=== PATIENT | male | born 1995 | race Hispanic/Latino ===

== ENCOUNTER 2019-02-24 08:09 | Emergency (ER) | payer SELFPAY ==
--- NOTE | 2019-02-24 09:02 | ER ---
Nurse's Notes [facility] Name: Colin Zaman Age: 24 yrs Sex: Male : 1995 Arrival Date: 02/24/2019 Time: 08:15 Bed 17 Private MD: Diagnosis: Influenza due to other identified influenza virus-B Presentation: 02/24 08:23 Presenting complaint: Patient states: feeling bad, headache, vomiting, feels hot X 2 iw days, +cough/congestion. Transition of care: patient was not received from another setting of care. Onset of symptoms was February 21, 2019. Risk Assessment: Do you want to hurt yourself or someone else? Patient reports no desire to harm self or others. Initial Sepsis Screen: Does the patient meet any 2 criteria? No. Patient's initial sepsis screen is negative. Does the patient have a suspected source of infection? No. Patient's initial sepsis screen is negative. Care prior to arrival: None. 08:23 Method Of Arrival: Ambulatory iw 08:23 Acuity: ALICIA 4 iw Triage Assessment: 08:28 General: Appears in no apparent distress. comfortable, Behavior is cooperative, bp appropriate for age, anxious. Pain: Complains of pain in head. EENT: No deficits noted. Neuro: No deficits noted. Cardiovascular: No deficits noted. Respiratory: No deficits noted. GI: Reports vomiting. : No signs and/or symptoms were reported regarding the genitourinary system. Derm: No deficits noted. Musculoskeletal: No deficits noted. Historical: - Allergies: 08:24 No Known Allergies; iw - Home Meds: 08:24 None [Active]; iw - PMHx: 08:24 None; iw - PSHx: 08:24 None; iw - Immunization history:: Adult Immunizations not up to date. - Social history:: Smoking status: Patient uses tobacco products, denies chronic smoking, but will smoke occasionally. - Ebola Screening: : Patient negative for fever greater than or equal to 101.5 degrees Fahrenheit, and additional compatible Ebola Virus Disease symptoms Patient denies exposure to infectious person Patient denies travel to an Ebola-affected area in the 21 days before illness onset No symptoms or risks identified at this time. Screenin:29 Abuse screen: Denies threats or abuse. Denies injuries from another. Nutritional bp screening: No deficits noted. Tuberculosis screening: No symptoms or risk factors identified. Fall Risk None identified. Assessment: 08:29 General: SEE TRIAGE NOTE. bp 09:38 Reassessment: PT D/C HOME AMBULATORY WITH FAMILY, DX WITH INFLUENZA B. iw Vital Signs: 08:24 BP 139 / 86; Pulse 96; Resp 16; Temp 98.4; Pulse Ox 99% on R/A; Weight 90.72 kg; Height iw 5 ft. 8 in. (172.72 cm); 09:39 BP 127 / 83; Pulse 87; Resp 16; Temp 98.5; Pulse Ox 99% ; iw 08:24 Body Mass Index 30.41 (90.72 kg, 172.72 cm) iw ED Course: 08:15 Patient arrived in ED. mr 08:24 Triage completed. iw 08:25 Arm band placed on. iw 08:27 Sourav Mandel, RN is Primary Nurse. bp 08:29 Ivelisse Pablo FNP-C is PHCP. snw 08:29 Wihco Sandoval MD is Attending Physician. snw 08:29 Patient has correct armband on for positive identification. Bed in low position. Call bp light in reach. Side rails up X2. 09:38 No provider procedures requiring assistance completed. Patient did not have IV access iw during this emergency room visit. Administered Medications: 09:10 Drug: Tamiflu 75 mg Route: PO; bp 09:40 Follow up: Response: No adverse reaction iw 09:10 Drug: Phenergan 25 mg Route: PO; bp 09:40 Follow up: Response: Nausea is decreased iw Outcome: 09:01 Discharge ordered by . snw 09:38 Discharged to home ambulatory, with family. iw 09:38 Condition: stable 09:38 Discharge instructions given to patient, Instructed on discharge instructions, follow up and referral plans. medication usage, Demonstrated understanding of instructions, follow-up care, medications, Prescriptions given X 2. 09:40 Patient left the ED. iw Signatures: Ivelisse Pablo FNP-C FNP-Carmita HoldenaMehnaz Irene, RN RN iw Sourav Mandel, RN RN bp
--- NOTE | 2019-02-24 09:02 | EDPHYS ---
Physician Documentation [facility] Name: Colin Zaman Age: 24 yrs Sex: Male : 1995 Arrival Date: 02/24/2019 Time: 08:15 Bed 17 Private MD: ED Physician Wicho Sandoval HPI: 02/24 09:00 This 24 yrs old Male presents to ER via Ambulatory with complaints of snw Headache, Fever, Vomiting. 09:00 Cough, congestion, malaise, fever, headache x 2 days. Onset: The symptoms/episode snw began/occurred suddenly, 2 day(s) ago, and became persistent. Severity of symptoms: At their worst the symptoms were moderate in the emergency department the symptoms are unchanged. It is unknown whether or not the patient has had similar symptoms in the past. The patient has not recently seen a physician. Historical: - Allergies: 08:24 No Known Allergies; iw - Home Meds: 08:24 None [Active]; iw - PMHx: 08:24 None; iw - PSHx: 08:24 None; iw - Immunization history:: Adult Immunizations not up to date. - Social history:: Smoking status: Patient uses tobacco products, denies chronic smoking, but will smoke occasionally. - Ebola Screening: : Patient negative for fever greater than or equal to 101.5 degrees Fahrenheit, and additional compatible Ebola Virus Disease symptoms Patient denies exposure to infectious person Patient denies travel to an Ebola-affected area in the 21 days before illness onset No symptoms or risks identified at this time. ROS: 08:43 Eyes: Negative for injury, pain, redness, and discharge. snw 08:43 Neck: Negative for injury, pain, and swelling, Cardiovascular: Negative for chest pain, palpitations, and edema. 08:43 Abdomen/GI: Negative for abdominal pain, nausea, vomiting, diarrhea, and constipation, Back: Negative for injury and pain, : Negative for injury, bleeding, discharge, and swelling, MS/Extremity: Negative for injury and deformity, Skin: Negative for injury, rash, and discoloration. 08:43 Constitutional: Positive for body aches, fatigue, fever, malaise. 08:43 ENT: Positive for rhinorrhea, sinus congestion, sore throat. 08:43 Respiratory: Positive for cough, with no reported sputum. 08:43 Neuro: Positive for headache. Exam: 08:42 Head/Face: Normocephalic, atraumatic. Eyes: Pupils equal round and reactive to light, snw extra-ocular motions intact. Lids and lashes normal. Conjunctiva and sclera are non-icteric and not injected. Cornea within normal limits. Periorbital areas with no swelling, redness, or edema. ENT: Nares patent. No nasal discharge, no septal abnormalities noted. Tympanic membranes are normal and external auditory canals are clear. Oropharynx with no redness, swelling, or masses, exudates, or evidence of obstruction, uvula midline. Mucous membranes moist. Neck: Trachea midline, no thyromegaly or masses palpated, and no cervical lymphadenopathy. Supple, full range of motion without nuchal rigidity, or vertebral point tenderness. No Meningismus. Chest/axilla: Normal chest wall appearance and motion. Nontender with no deformity. No lesions are appreciated. Cardiovascular: Regular rate and rhythm with a normal S1 and S2. No gallops, murmurs, or rubs. Normal PMI, no JVD. No pulse deficits. Abdomen/GI: Soft, non-tender, with normal bowel sounds. No distension or tympany. No guarding or rebound. No evidence of tenderness throughout. Back: No spinal tenderness. No costovertebral tenderness. Full range of motion. Skin: Warm, dry with normal turgor. Normal color with no rashes, no lesions, and no evidence of cellulitis. MS/ Extremity: Pulses equal, no cyanosis. Neurovascular intact. Full, normal range of motion. Neuro: Awake and alert, GCS 15, oriented to person, place, time, and situation. Cranial nerves II-XII grossly intact. Motor strength 5/5 in all extremities. Sensory grossly intact. Cerebellar exam normal. Normal gait. Psych: Awake, alert, with orientation to person, place and time. Behavior, mood, and affect are within normal limits. 08:42 Constitutional: The patient appears alert, awake. 08:42 Respiratory: the patient does not display signs of respiratory distress, Respirations: normal, Breath sounds: bronchial sounds, that are mild, are heard in the right posterior lower lobe. Vital Signs: 08:24 BP 139 / 86; Pulse 96; Resp 16; Temp 98.4; Pulse Ox 99% on R/A; Weight 90.72 kg; Height iw 5 ft. 8 in. (172.72 cm); 09:39 BP 127 / 83; Pulse 87; Resp 16; Temp 98.5; Pulse Ox 99% ; iw 08:24 Body Mass Index 30.41 (90.72 kg, 172.72 cm) iw MDM: 08:32 Patient medically screened. snw 09:02 Data reviewed: vital signs, nurses notes. Data interpreted: Pulse oximetry: on room air snw is 99 %. Interpretation: normal. Counseling: I had a detailed discussion with the patient and/or guardian regarding: the historical points, exam findings, and any diagnostic results supporting the discharge/admit diagnosis, lab results, the need for outpatient follow up, to return to the emergency department if symptoms worsen or persist or if there are any questions or concerns that arise at home. Special discussion: Based on the history and exam findings, there is no indication for further emergent testing or inpatient evaluation. I discussed with the patient/guardian the need to see the primary care provider for further evaluation of the symptoms. 02/24 08:19 Order name: Flu; Complete Time: 08:59 snw 02/24 08:19 Order name: Strep; Complete Time: 08:59 snw 02/24 08:51 Order name: Throat Culture EDMS Administered Medications: 09:10 Drug: Tamiflu 75 mg Route: PO; bp 09:40 Follow up: Response: No adverse reaction iw 09:10 Drug: Phenergan 25 mg Route: PO; bp 09:40 Follow up: Response: Nausea is decreased iw Disposition: 02/25 07:15 Co-signature as Attending Physician, Wicho Sandoval MD I agree with the assessment and kimberlyn plan of care. Disposition: 02/24/19 09:01 Discharged to Home. Impression: Influenza due to other identified influenza virus - B. - Condition is Stable. - Discharge Instructions: Influenza, Adult, Rehydration, Adult. - Prescriptions for Tamiflu 75 mg Oral Capsule - take 1 capsule by ORAL route every 12 hours for 5 days; 10 capsule. promethazine 25 mg Oral Tablet - take 1 tablet by ORAL route every 6 hours As needed; 20 tablet. - Work release form, Medication Reconciliation Form, Thank You Letter, Antibiotic Education, Prescription Opioid Use form. - Follow up: Emergency Department; When: As needed; Reason: Worsening of condition. Follow up: Private Physician; When: 2 - 3 days; Reason: Recheck today's complaints, Continuance of care, Re-evaluation by your physician. Signatures: Dispatcher [employer] Wicho Jennings MD MD cha Therrien, Shelly, BENEFIT SPECIALIST-C BENEFIT SPECIALIST-Csnw Alayna Lazo, RN RN iw Sourav Mandel RN RN bp Corrections: (The following items were deleted from the chart) 02/24 09:40 09:01 02/24/2019 09:01 Discharged to Home. Impression: Influenza due to other iw identified influenza virus - B. Condition is Stable. Forms are Medication Reconciliation Form, Thank You Letter, Antibiotic Education, Prescription Opioid Use. Follow up: Emergency Department; When: As needed; Reason: Worsening of condition. Follow up: Private Physician; When: 2 - 3 days; Reason: Recheck today's complaints, Continuance of care, Re-evaluation by your physician. snw
[2019-02-24] MEDS ORDERED: OSELTAMIVIR 75 MG CAP ONE (09:06)
[2019-02-24] MEDS ORDERED: PROMETHAZINE 25 MG TABLET ONE (09:06)
[2019-02-24 09:46] VITALS: O2SAT 99
[2019-02-24 09:47] VITALS: BP 127/83; TEMP 98.5
== END 2019-02-24 09:40 | disposition home or self-care (01) ==
LOC: ER 08:09
DX: J10.1 Influenza due to other identified influenza virus with other respiratory manifestations (principal); R51 Headache
CPT/HCPCS: 87070; 87081; 87804; 99283; Q0169